=== PATIENT | male | born 1955 | race Two or more races ===

== ENCOUNTER → 2020-01-16 | Outpatient (CLI) | payer BC | END | disposition home or self-care (01) | LOC: RAD 12:18 | PROVIDERS: ATTEND Internal Medicine Clinical Cardiac Electrophysiology | DX: R94.31 Abnormal electrocardiogram [ECG] [EKG] (principal); I10 Essential (primary) hypertension; E11.9 Type 2 diabetes mellitus without complications; E78.5 Hyperlipidemia, unspecified | CPT/HCPCS: 78452; 93017; A9502 ==

== ENCOUNTER 2020-04-23 17:09 | Emergency (ER) | payer BC ==
[~2020-04-23] VITALS: Ht 185.4 cm; Wt 82.5 kg
[2020-04-23 17:57] LABS: BASOPHILS % (AUTO) 1 % (0-1); EOSINOPHILS % (AUTO) 2 % (1-7); LYMPHOCYTES % (AUTO) 20 % (22-44); MEAN CORPUSCULAR HEMOGLOBIN 31.3 pg (27.5-34.5); MEAN CORPUSCULAR HGB CONC 34.4 g/dL (33.2-36.2); MEAN PLATELET VOLUME 8.3 fL (7.4-10.4); MONOCYTES % (AUTO) 6 % (2-9); NEUTROPHILS % (AUTO) 72 % (42-75); PLATELET COUNT 282 x10^3/uL (130-400); RED BLOOD COUNT 4.71 x10^6/uL (4.38-5.82); RED CELL DISTRIBUTION WIDTH 13.4 % (9.4-14.8)
[2020-04-23 18:01] LABS: MD NO
[2020-04-23 18:09] LABS: ALANINE AMINOTRANSFERASE 28 U/L (12-78); ANION GAP 5 mmol/L (5-15); CALCIUM 9.2 mg/dL (8.5-10.1); CHLORIDE 106 mmol/L (98-107); CREATININE 1.24 mg/dL (0.7-1.3)
[2020-04-23 18:14] LABS: ALKALINE PHOSPHATASE 76 U/L (45-117); BILIRUBIN,TOTAL 0.4 mg/dL (0.2-1.0); TOTAL PROTEIN 7.4 g/dL (6.4-8.2); TROPONIN I < 0.015 ng/mL (0.000-0.045)
--- NOTE | 2020-04-23 18:35 | NUR ---
assumed care of pt. pt sent here for eval of PE from his shipping [facility] office. pt reports that he has started a new excersize regimen in the last 2 months and that he has been taken off of his statin and started on carvadopa-levadopa for N/O tremulous activity. pt is awaiting neurologist appointment next week. pt has no CP no SOB, no hemoptysis. sitting up on gurney in no apparent distress. SO at bedside. pt and SO updated on POC
[2020-04-23] MEDS ORDERED: ASPI-515 PO (18:54)
[2020-04-23] MEDS ORDERED: LOSA25TA2 PO (18:54)
[2020-04-23] MEDS ORDERED: TAMS-11 PO (18:54)
[2020-04-23] MEDS ORDERED: MULT-658 PO (18:54)
[2020-04-23] MEDS ORDERED: MAGN400T36 PO (18:54)
[2020-04-23] MEDS ORDERED: LEVO25PO PO (18:54)
[2020-04-23] MEDS ORDERED: vit d PO (18:54)
[2020-04-23] MEDS ORDERED: PRAS25CA PO (18:54)
[2020-04-23] MEDS ORDERED: LORA1TAB46 PO (18:54)
--- NOTE | 2020-04-23 19:02 | NUR ---
report to Minoo PERRY and Melvin PERRY
[2020-04-23 19:25] LABS: INTERNATIONAL NORMALIZED RATIO 1.06 (0.93-1.1); PROTHROMBIN TIME 11.2 Seconds (9.6-11.5)
[2020-04-23] MEDS ORDERED: APIXABAN 5 MG TABLET PO ONE (19:35)
[2020-04-23] MEDS ORDERED: APIXABAN 5 MG TABLET ONE (19:38)
[2020-04-23 20:33] VITALS: BP 146/83
== END 2020-04-23 20:42 | disposition home or self-care (01) ==
LOC: ED 17:39
DX: I26.99 Other pulmonary embolism without acute cor pulmonale (principal); R07.9 Chest pain, unspecified; Z20.828 Contact with and (suspected) exposure to other viral communicable diseases; R06.02 Shortness of breath; R53.1 Weakness; I10 Essential (primary) hypertension
CPT/HCPCS: 36415; 80053; 84484; 85025; 85610; 85730; 87635; 93005; 99284

== ENCOUNTER → 2020-04-23 | Outpatient (CLI) | payer BC ==
[~2020-04-23] MED LIST: ASPI-515 PO; LEVO25PO PO; LORA1TAB46 PO; LOSA25TA2 PO; MAGN400T36 PO; MULT-658 PO; OMNIPAQUE 350 MG/ML, 100ML BOTTLE ONE; PRAS25CA PO; TAMS-11 PO; vit d PO
== END | disposition home or self-care (01) ==
LOC: CFH 14:13
PROVIDERS: ATTEND Internal Medicine Clinical Cardiac Electrophysiology
DX: I71.9 Aortic aneurysm of unspecified site, without rupture (principal); I34.0 Nonrheumatic mitral (valve) insufficiency; I26.99 Other pulmonary embolism without acute cor pulmonale
CPT/HCPCS: 71275; 74174; 82565; Q9967